=== PATIENT | female | born 1940 | race Caucasian/White ===

== ENCOUNTER 2020-09-09 17:05 | Outpatient (NON) | payer MEDICARE, SELFPAY ==
[2020-09-09 17:32] LABS: Alanine Aminotransferase 16 U/L (14-59); Albumin Level 3.9 g/dL (3.4-5.0); Alkaline Phosphatase 71 U/L (46-116); Anion Gap 4 mmol/L (8-16); Aspartate Amino Transferase 16 U/L (15-37); Bilirubin,Total 0.5 mg/dL (0.00-1.00); Blood Urea Nitrogen 16 mg/dL (7-18); Calcium 9.3 mg/dL (8.5-10.1); Carbon Dioxide 33 mmol/L (21-32); Chloride 101 mmol/L (98-108); Estimated Glomerular Filt Rate 39; Glucose 103 mg/dL (70-99); Osmolality Calculated 287 mOsm/kg (285-295); Potassium 3.6 mmol/L (3.5-5.1); Sodium 138 mmol/L (136-145); Total Protein 6.6 g/dL (6.4-8.2)
== END 2020-09-09 17:06 ==
LOC: CHSLAB 17:09
PROVIDERS: PCP Family Medicine; Visit Provider Family Medicine
DX: J44.9 Chronic obstructive pulmonary disease, unspecified (principal); I10 Essential (primary) hypertension
CPT/HCPCS: 36415; 80053

== ENCOUNTER 2021-12-27 16:48 | Inpatient (IN) | payer MEDICARE, SELFPAY ==
--- NOTE | ~2021-12-27 | XR_ITS ---
EXAMINATION: XR chest 1V portable DATE: 01/04/2022 09:17 INDICATION: Mental status change. TECHNIQUE: A single frontal view of the chest was obtained. COMPARISON: Chest single view 01/02/2022 FINDINGS: There is a diffuse interstitial pattern, consistent with mild pulmonary edema. There is a s mall right pleural effusion. No pneumothorax. Cardiomegaly is noted. IMPRESSION: 1. Mild pulmonary edema. 2. Small right pleural effusion. 3. Cardiomegaly. Reviewed, dictated and finalized at location B.
--- NOTE | ~2021-12-27 | XR_ITS ---
EXAMINATION: XR chest 1V portable DATE: 01/02/2022 06:45 INDICATION: COPD. Congestive heart failure. TECHNIQUE: frontal view of the chest was obtained. COMPARISON: None FINDINGS: Opacities at the bilateral lung bases with blunting at the costophrenic angles consistent with small bilateral pleural effusions and associated basilar atelectasis, mild pulmonary edema or pneumonia. No pneumothorax. Borderline heart size accounting for AP technique. IMPRESSION: 1. Small bilateral pleural effusions with associated bibasilar atelectasis, mild pulmonary edema or p neumonia. 2. Borderline heart size. Reviewed, dictated and finalized at location A. IMPRESSION: 1. Small bilateral pleural effusions with associated bibasilar atelectasis, mil d pulmonary edema or pneumonia. 2. Borderline heart size.
--- NOTE | ~2021-12-27 | CT_ITS ---
EXAMINATION: CT brain wo con DATE: 01/04/2022 09:17 INDICATION: Headache. Change in mental status. TECHNIQUE: Computed tomography (CT) of the head was performed without intravenous contrast. The mA wa s adjusted according to patient size. Iterative reconstruction technique was employed. The dose-lengt h product was 605.33 mGy-cm. COMPARISON: None FINDINGS: There is a right-sided frontotemporal subdural hematoma that is predominantly hypodense and isodense to issa matter with maximum thickness of 18 mm. Inferior to right temporal lobe, there is a n area of the subdural hematoma that is hyperdense to issa matter. There is 17 mm leftward midline sh ift measured at the foramen of Monro. Right-sided uncal herniation is noted. There is no acute ischem ic infarct. There is no abnormal mass lesion. There is enlargement of temporal horn of left lateral v entricle, consistent with entrapment. There is decreased attenuation in the left temporal lobe perive ntricular white matter, which may be transependymal flow of cerebral spinal fluid and/or chronic smal l vessel ischemic disease. There is mild mucosal thickening in the paranasal sinuses. The mastoid air cells are normal. IMPRESSION: 1. Large right-sided subdural hematoma, likely acute and subacute. 2. Leftward subfalcine herniation and right-sided uncal herniation. 3. Entrapment of left lateral ventricle. 4. I discussed this case with Shamar Rebolledo. Reviewed, dictated and finalized at location B.
[2021-12-27 17:35] VITALS: BMI 25.9
--- NOTE | 2021-12-27 18:09 | ADMGEN ---
Addendum entered by Iveth Castle RN 12/27/21 18:13: *discharge date of 12/27/21. Reporting nurse also stated that patient is to have a CT of head without contrast before 01/18/22. Patient is alert and oriented x4 but does exhibit sundowners at times. She is currently taking seroquel and has orders to taper off begininning 12/27/21 take 25mg QHS x3 then 12.5mg QHS x3. Original Note: This patient, Inge Bowers, was admitted to 2nd Floor Room 208-2. Patient/family oriented to hospital policies and general routines including ID bracelet, bed and alarms, visiting hours, pain management, procedures, bathroom and other care routines, personal items, smoking policy, room service/diet, and visiting hours. Information on how to activate the Rapid Response Team has been discussed. Patient/Family are encouraged to report perceived risks to care and to ask questions if they do not understand what they are told or what they should do. Son, Yonatan is POA. Daughters Janna and Isabel are at bedside. Daughter Janna took patient belongings home and left slippers, pajama pants and socks. Daughter will bring up clothes tomorrow for patient to wear. Per report from hospital that patient was discharged from, patient is supposed to hold coumadin for 1 month from discharge date (00
[2021-12-27 20:00] VITALS: PULSE 80; RESP 18; O2SAT 95; O2SAT 96
--- NOTE | 2021-12-27 20:00 | PC.NURSE ---
Patient does not have an IV. Therefore, an IV could not be assessed.
[2021-12-27 21:10] VITALS: PULSE 87
[2021-12-27] MEDS: METOPROLOL TARTRATE 25 MG TABLET PO (21:10)
[2021-12-27] MEDS: PRAMIPEXOLE 0.125 MG TABLET PO (21:11)
[2021-12-27] MEDS: MELATONIN 5 MG TABLET PO (21:11)
[2021-12-27] MEDS: QUEtiapine FUMARATE 25 MG TABLET PO (21:11)
--- NOTE | 2021-12-27 21:20 | PC.NURSE ---
Patient was ordered to take 0.125 mg Pramipexole @ 2100. This medication was not available in the [facility], and pharmacy had left for the night. The charge nurse and I went in the pharmacy, and took out 0.25 mg Pramipexole for the patient, and the medication was cut in half, so that 0.5 of the 0.25 tablet was dispensed to the patient. That allowed the patient to be given the correct dosage of her medication (0.125 mg Pramipexole).
[2021-12-28] VITALS (9 sets, daily range): BP systolic 132–182; BP diastolic 71–95; PULSE 74–97; RESP 16–22; TEMP 36.2–36.8; O2SAT 90–97
[2021-12-28 05:09] LABS: Hematocrit 36.5 % (35.0-42.0); Hemoglobin 11.3 g/dL (11.7-13.8); Mean Corpuscular Hemoglobin 29.7 pg (27.0-31.0); Mean Corpuscular Volume 96.1 fL (78.0-102.0); Mean Platelet Volume 9.7 fl (9.2-11.8); Platelet Count Result 213 K/mm3 (150-420); Red Cell Distribution Width 14.5 % (11.6-14.4); White Blood Count 5.3 K/mm3 (4.8-10.8)
[2021-12-28 05:26] LABS: Alanine Aminotransferase 24 U/L (14-59); Albumin Level 2.8 g/dL (3.4-5.0); Alkaline Phosphatase 81 U/L (46-116); Anion Gap 7 mmol/L (8-16); Aspartate Amino Transferase 26 U/L (15-37); Bilirubin,Total 0.9 mg/dL (0.00-1.00); Blood Urea Nitrogen 11 mg/dL (7-18); Calcium 8.7 mg/dL (8.5-10.1); Carbon Dioxide 29 mmol/L (21-32); Chloride 102 mmol/L (98-108); Estimated CRCL calculation 46 ml/min; Estimated Glomerular Filt Rate > 60; Glucose 101 mg/dL (70-99); Magnesium 1.9 mg/dL (1.8-2.4); Osmolality Calculated 285 mOsm/kg (285-295); Potassium 3.8 mmol/L (3.5-5.1); Sodium 138 mmol/L (136-145); Total Protein 5.7 g/dL (6.4-8.2)
[2021-12-28] MEDS: METOPROLOL TARTRATE 25 MG TABLET PO ×2 (07:33→20:53)
[2021-12-28] MEDS: DIGOXIN TAB 125 MCG TABLET PO (07:33)
[2021-12-28] MEDS: DOCUSATE SODIUM 100 MG CAPSULE PO ×2 (07:34→16:43)
--- NOTE | 2021-12-28 07:53 | PM.IMHP ---
H&P: HPI History of Present Illness Date/Time: 12/28/21 07:53 this is a 81-year-old female that comes to a swing bed as she was admitted to the hospital in [place] from a post traumatic fall found she had a subdural hematoma with a 7 mm midline shift. Patient has a past medical history of atrophia, COPD, hypertension, CHF. Patient did not require any surgical intervention patient was noted to have some sundowning at nighttime during her stay patient had headaches throughout the visit nothing was found neuro was consulted recommendation was Tylenol while there the subdural hematoma continued to increase as she improved patient fell while at the hospital. Recommendations were to make sure that we avoid steroids in the setting of traumatic brain injury as well as keep her head of the bed 30 degrees we will be holding Coumadin for 1 month neurosurgery will continue to follow as an outpatient. Patient also has some forgetfulness noted as she informs me she cannot remember what she has just informed me. After review of our labs they are unremarkable. She will be seen by physical therapy and occupational therapy and treated and evaluated accordingly Chief Complaint: decondition, REhab Review of Systems Review of Systems: Headache All systems reviewed & are unremarkable except as noted in HPI and below PMFSH Past Medical History Medical History Afib CHF (congestive heart failure) COPD (chronic obstructive pulmonary disease) Fall HTN (hypertension) SDH (subdural hematoma) Surgical History Surgical History Hx of cholecystectomy Total knee replacement status Social History Social History Smoking packs per day: 3 Smoking cigarettes per day: 60.0 Years smoked: 40 Smoking pack-years: 120.00 Smoking status: Former smoker Tobacco type: cigarettes Second hand tobacco smoke exposure: No Alcohol intake: never Substance use: never Substance use type: does not use Spiritual care concerns: No Comments At time as signature, I have reviewed and agree with nursing past medical, social, surgical and family history. Please see nursing chart for further information. There is no relevant family history pertinent to the presenting complaint. Meds Home Medications and Allergies Home Medications Medication Instructions Recorded Confirmed Type Zofran 4 mg PO TID PRN 12/27/21 12/27/21 History acetaminophen 650 mg PO Q4-6H PRN 12/27/21 12/27/21 History budesonide-formoterol [Symbicort] 2 puff INHALATION BID 12/27/21 12/27/21 History digoxin 125 mcg PO DAILY 12/27/21 12/27/21 History docusate sodium 100 mg PO BID 12/27/21 12/27/21 History metoprolol tartrate 25 mg PO BID 12/27/21 12/27/21 History pramipexole 0.125 mg PO HS 12/27/21 12/27/21 History quetiapine 25 mg PO HS 12/27/21 12/27/21 History umeclidinium [Incruse Ellipta] 62.5 mcg INHALATION DAILY 12/27/21 12/27/21 History Allergies Allergy/AdvReac Type Severity Reaction Status Date / Time No Known Allergies Allergy Verified 12/27/21 18:26 Vital Signs Vital Signs - 24 hr 12/27/21 20:00 12/27/21 21:10 12/28/21 00:00 Temperature 97.3 F L Pulse Rate 80 87 74 Respiratory Rate 18 18 Blood Pressure 163/82 H Pulse Oximetry 95 95 12/28/21 06:33 12/28/21 07:33 12/28/21 07:38 Temperature 97.2 F L Pulse Rate 84 96 96 Respiratory Rate 18 22 H Blood Pressure 182/95 H Pulse Oximetry 94 91 Exam Narrative: GENERAL:Well-appearing, well-nourished, and in no acute distress. HEAD:Normocephalic, atraumatic. EYES: PERRLA and EOMI. ENT: Nares clear, no rhinorrhea or epistaxis. Mucous membranes moist. NECK: Supple. CHEST: Clear to auscultation. No respiratory distress. HEART: Regular rate and rhythm. No murmur heard. Normal peripheral pulses. ABDOMEN: Soft, nontender, nondistended,
[2021-12-28] MEDS: ACETAMINOPHEN 325 MG TABLET 650 MG PO (08:12)
[2021-12-28] MEDS: UMECLIDINIUM BROMIDE 62.5 MCG ELLIPTA 1 PUFF INHALATION (09:11)
[2021-12-28] MEDS: BUDESONIDE/FORMOTEROL (*SP) 160-4.5 MCG 6 GM INH 2 PUFF INHALATION ×2 (09:11→16:44)
[2021-12-28] MEDS: traMADol HCL (*CRX) 50 MG TABLET PO ×2 (10:55→16:43)
--- NOTE | 2021-12-28 13:54 | PC.NURSE ---
Pt. remained A&Ox4 today. Pt. HOB to remain at 30 degrees or higher at all times. Increase oxygen with any type of activity to maintain SPO2 at 90% or higher. Pt. c/o headache to frontal lobe this morning. Tylenol did not relieve pain but pain changed location to back of head where patient hit head. Maddi prescribed Tramadol. Patient stated that pain lowered from a 6 to a 4 with the Tramadol. Gave patient ice pack for head. Will monitor if it has any affect on pain. Patient describes pain as sore
[2021-12-28] MEDS: QUEtiapine FUMARATE 25 MG TABLET PO (20:50)
[2021-12-28] MEDS: PRAMIPEXOLE 0.125 MG TABLET PO (20:50)
[2021-12-28] MEDS: MELATONIN 5 MG TABLET PO (20:51)
[2021-12-29] VITALS (7 sets, daily range): BP systolic 119–169; BP diastolic 69–92; PULSE 69–96; RESP 18–20; TEMP 36.5–36.8; O2SAT 90–96
[2021-12-29] MEDS: BUDESONIDE/FORMOTEROL (*SP) 160-4.5 MCG 6 GM INH 2 PUFF INHALATION ×2 (08:51→16:48)
[2021-12-29] MEDS: UMECLIDINIUM BROMIDE 62.5 MCG ELLIPTA 1 PUFF INHALATION (08:51)
[2021-12-29] MEDS: METOPROLOL TARTRATE 25 MG TABLET PO ×2 (08:51→20:41)
[2021-12-29] MEDS: DIGOXIN TAB 125 MCG TABLET PO (08:52)
[2021-12-29] MEDS: traMADol HCL (*CRX) 50 MG TABLET PO ×2 (08:52→16:47)
[2021-12-29] MEDS: DOCUSATE SODIUM 100 MG CAPSULE PO ×2 (08:52→16:48)
[2021-12-29] MEDS: QUEtiapine FUMARATE 25 MG TABLET PO (20:36)
[2021-12-29] MEDS: PRAMIPEXOLE 0.125 MG TABLET PO (20:40)
[2021-12-29] MEDS: MELATONIN 5 MG TABLET PO (20:41)
[2021-12-29] MEDS: ACETAMINOPHEN 325 MG TABLET 650 MG PO (20:43)
[2021-12-30] VITALS (7 sets, daily range): BP systolic 139–160; BP diastolic 78–100; PULSE 80–88; RESP 18; TEMP 36.2–36.7; O2SAT 92–95
[2021-12-30] MEDS: DOCUSATE SODIUM 100 MG CAPSULE PO ×2 (08:33→17:38)
[2021-12-30] MEDS: traMADol HCL (*CRX) 50 MG TABLET PO ×3 (08:34→21:05)
[2021-12-30] MEDS: METOPROLOL TARTRATE 25 MG TABLET PO ×2 (08:34→21:05)
[2021-12-30] MEDS: DIGOXIN TAB 125 MCG TABLET PO (08:34)
[2021-12-30] MEDS: BUDESONIDE/FORMOTEROL (*SP) 160-4.5 MCG 6 GM INH 2 PUFF INHALATION ×2 (08:40→17:38)
[2021-12-30] MEDS: UMECLIDINIUM BROMIDE 62.5 MCG ELLIPTA 1 PUFF INHALATION (08:41)
[2021-12-30] MEDS: ACETAMINOPHEN 325 MG TABLET 650 MG PO ×2 (11:45→19:15)
[2021-12-30] MEDS: QUEtiapine FUMARATE 12.5 MG TABLET PO (21:04)
[2021-12-30] MEDS: PRAMIPEXOLE 0.125 MG TABLET PO (21:04)
[2021-12-30] MEDS: MELATONIN 5 MG TABLET PO (21:06)
--- NOTE | 2021-12-30 22:41 | PC.NURSE ---
Patient sleeping. No apparent distress. Call light and needed items within reach.
[2021-12-31] VITALS (8 sets, daily range): BP systolic 128–167; BP diastolic 63–87; PULSE 60–96; RESP 18–20; TEMP 35.7–36.9; O2SAT 92–95
[2021-12-31] MEDS: ACETAMINOPHEN 325 MG TABLET 650 MG PO ×2 (01:15→11:48)
--- NOTE | 2021-12-31 05:50 | PC.NURSE ---
Patient attempted to ambulate to bed by self. Nurse found patient, reminded to ask for assistance. O2 @4L per n.c while ambulating and immediately after ambulating. HOB up 40 degrees, Feet elevated on one pillow. Bed alarm on.Patient denies headache or need for pain medication.
[2021-12-31] MEDS: UMECLIDINIUM BROMIDE 62.5 MCG ELLIPTA 1 PUFF INHALATION (08:13)
[2021-12-31] MEDS: DIGOXIN TAB 125 MCG TABLET PO (08:14)
[2021-12-31] MEDS: BUDESONIDE/FORMOTEROL (*SP) 160-4.5 MCG 6 GM INH 2 PUFF INHALATION ×2 (08:14→17:10)
[2021-12-31] MEDS: DOCUSATE SODIUM 100 MG CAPSULE PO ×2 (08:15→17:12)
[2021-12-31] MEDS: METOPROLOL TARTRATE 25 MG TABLET PO ×2 (08:15→20:57)
[2021-12-31] MEDS: traMADol HCL (*CRX) 50 MG TABLET PO ×2 (08:43→17:12)
[2021-12-31] MEDS: MELATONIN 5 MG TABLET PO (20:56)
[2021-12-31] MEDS: QUEtiapine FUMARATE 12.5 MG TABLET PO (20:57)
[2021-12-31] MEDS: PRAMIPEXOLE 0.125 MG TABLET PO (20:57)
[2022-01-01] VITALS (8 sets, daily range): BP systolic 128–158; BP diastolic 67–86; PULSE 62–78; RESP 16–18; TEMP 36.1–36.4; O2SAT 93–95
[2022-01-01] MEDS: BUDESONIDE/FORMOTEROL (*SP) 160-4.5 MCG 6 GM INH 2 PUFF INHALATION ×2 (08:15→17:04)
[2022-01-01] MEDS: DOCUSATE SODIUM 100 MG CAPSULE PO ×2 (08:16→17:03)
[2022-01-01] MEDS: UMECLIDINIUM BROMIDE 62.5 MCG ELLIPTA 1 PUFF INHALATION (08:16)
[2022-01-01] MEDS: METOPROLOL TARTRATE 25 MG TABLET PO ×2 (08:16→21:01)
[2022-01-01] MEDS: DIGOXIN TAB 125 MCG TABLET PO (08:17)
[2022-01-01] MEDS: traMADol HCL (*CRX) 50 MG TABLET PO ×2 (08:17→17:03)
[2022-01-01] MEDS: ACETAMINOPHEN 325 MG TABLET 650 MG PO (13:20)
--- NOTE | 2022-01-01 13:22 | PC.NURSE ---
Call placed to Maddi HERNANDEZ and report given on pts change in condition. Pt has increased noted bilat lower edema swelling and feet noted to be cyanotic, pt placed back to bed and feet elevated. Pt also c/o some increased SOB today and increased pressure in her head that is different from this AM. Awaiting new orders.
--- NOTE | 2022-01-01 13:44 | PC.NURSE ---
Addendum entered by Ashlyn Connell RN 01/01/22 13:47: Also added to orders for incentive spirometry, RT notified for teaching. Original Note: Orders received for TOM Mcnair applied, continue to monitor, and labs/CXR in AM.
--- NOTE | 2022-01-01 16:47 | PC.NURSE ---
Patient exhibiting increased confusion per normal this time of day. Patient noted to be removing her O2 x 2 this afternoon. Cyanosis noted to bilateral feet and coarse crackles with diminished lung sounds noted in bases. NITRATOR OPERATOR notified of change in condition and ordered TOM hose and spirometry for patient. Patient currently resting in bed with legs elevated and ice pack for her headache.
[2022-01-01] MEDS: MELATONIN 5 MG TABLET PO (21:00)
[2022-01-01] MEDS: PRAMIPEXOLE 0.125 MG TABLET PO (21:02)
[2022-01-01] MEDS: QUEtiapine FUMARATE 12.5 MG TABLET PO (21:02)
[2022-01-02] VITALS (8 sets, daily range): BP systolic 127–147; BP diastolic 72–87; PULSE 63–78; RESP 18–20; TEMP 36.4–37.1; O2SAT 92–98
[2022-01-02] MEDS: ACETAMINOPHEN 325 MG TABLET 650 MG PO (03:08)
[2022-01-02 05:14] LABS: Hematocrit 33.2 % (35.0-42.0); Hemoglobin 10.5 g/dL (11.7-13.8); Mean Corpuscular HGB Conc 31.6 g/dL (32.0-36.0); Mean Corpuscular Volume 94.9 fL (78.0-102.0); Mean Platelet Volume 10.1 fl (9.2-11.8); Platelet Count Result 201 K/mm3 (150-420); Red Cell Distribution Width 14.8 % (11.6-14.4); White Blood Count 5.3 K/mm3 (4.8-10.8)
[2022-01-02 05:35] LABS: Anion Gap 3 mmol/L (8-16); Blood Urea Nitrogen 8 mg/dL (7-18); Calcium 8.9 mg/dL (8.5-10.1); Carbon Dioxide 31 mmol/L (21-32); Chloride 99 mmol/L (98-108); Estimated CRCL calculation 49 ml/min; Estimated Glomerular Filt Rate > 60; Glucose 92 mg/dL (70-99); NT Pro B Type Natriuretic Pept 2547 pg/mL (0-450); Osmolality Calculated 274 mOsm/kg (285-295); Potassium 4.3 mmol/L (3.5-5.1); Sodium 133 mmol/L (136-145)
[2022-01-02] MEDS: UMECLIDINIUM BROMIDE 62.5 MCG ELLIPTA 1 PUFF INHALATION (08:48)
[2022-01-02] MEDS: BUDESONIDE/FORMOTEROL (*SP) 160-4.5 MCG 6 GM INH 2 PUFF INHALATION ×2 (08:48→17:34)
[2022-01-02] MEDS: METOPROLOL TARTRATE 25 MG TABLET PO ×2 (08:48→20:13)
[2022-01-02] MEDS: DOCUSATE SODIUM 100 MG CAPSULE PO ×2 (08:49→17:34)
[2022-01-02] MEDS: traMADol HCL (*CRX) 50 MG TABLET PO ×2 (08:49→18:00)
[2022-01-02] MEDS: DIGOXIN TAB 125 MCG TABLET PO (08:49)
[2022-01-02] MEDS: FUROSEMIDE 40 MG TABLET PO (08:49)
--- NOTE | 2022-01-02 10:26 | PM.EVENT ---
Event Note Event Note Event Note: Patient was given a 1x dose of lasix as BNP 2547 everything else is stable and patient is feeling ok today we will continue to monitor .
[2022-01-02] MEDS: PRAMIPEXOLE 0.125 MG TABLET PO (20:14)
[2022-01-02] MEDS: QUEtiapine FUMARATE 12.5 MG TABLET PO (20:14)
[2022-01-02] MEDS: MELATONIN 5 MG TABLET PO (20:14)
[2022-01-03] VITALS (9 sets, daily range): BP systolic 147–178; BP diastolic 82–90; PULSE 54–77; RESP 16–18; TEMP 36.3–37; O2SAT 93–97
[2022-01-03] MEDS: UMECLIDINIUM BROMIDE 62.5 MCG ELLIPTA 1 PUFF INHALATION (08:34)
[2022-01-03] MEDS: BUDESONIDE/FORMOTEROL (*SP) 160-4.5 MCG 6 GM INH 2 PUFF INHALATION ×2 (08:34→17:27)
[2022-01-03] MEDS: DIGOXIN TAB 125 MCG TABLET PO (08:35)
[2022-01-03] MEDS: METOPROLOL TARTRATE 25 MG TABLET PO ×2 (08:35→21:01)
[2022-01-03] MEDS: DOCUSATE SODIUM 100 MG CAPSULE PO ×2 (08:35→17:28)
[2022-01-03] MEDS: traMADol HCL (*CRX) 50 MG TABLET PO ×2 (08:38→21:01)
[2022-01-03] MEDS: ACETAMINOPHEN 325 MG TABLET 650 MG PO (13:21)
[2022-01-03] MEDS: ONDANSETRON HCL ODT 4 MG TABLET PO (13:22)
[2022-01-03] MEDS: PRAMIPEXOLE 0.125 MG TABLET PO (21:01)
[2022-01-03] MEDS: QUEtiapine FUMARATE 12.5 MG TABLET PO (21:01)
--- NOTE | 2022-01-03 21:13 | PC.NURSE ---
Patient awakened easily when name spoken. Patient to/from bedside commode per 2 nurses with walker and gait belt. Patient appeared fatigued and said she was very tired. Patient urinated. Patient was very drowsy and was closing her eyes soon as she was back in the bed. Patient took HS meds without difficulty. Patient refused Melatonin @ this time due to already being so tired. O2 @ 2 lpm/nc. No short of breath noted. Respirations even and unlabored. Call light in reach.
--- NOTE | 2022-01-03 23:57 | PC.NURSE ---
Patient awaked to name spoken but remains very drowsy. Denies pain/complaints/needs @ this time. O2 continues @ 2 lpm/nc. Respirations even and unlabored. Call light in reach.
--- NOTE | 2022-01-04 01:45 | PC.NURSE ---
Patient assisted to/from bedside commode per 2 nurses with gait belt and walker. Patient admitted to feeling weak. Urinated 100ml dark yellow urine. No shortness of breath noted. Call light in reach.
--- NOTE | 2022-01-04 04:00 | PC.NURSE ---
Patient drowsy but awakens by name. Patient has been assisted with turning/positioning throughout the night. O2 continues @ 2 lpm/nc. Respirations even and unlabored. No distress noted. Call light in reach.
--- NOTE | 2022-01-04 04:45 | PC.NURSE ---
Patient awake when nurse entered room, not as drowsy when talking to verse writer. Patient denies pain/complaints/needs @ this time. Patient assisted onto her left side with pillow behind her back for comfort. O2 continues @ 2 lpm/nc with respirations even and unlabored. Patient drank some water with verse writer holding cup. No distress noted. Call light in reach.
--- NOTE | 2022-01-04 06:20 | PC.NURSE ---
Upon checking on patient resume writer noted that patient has turned herself onto her right side and is holding the pillow that was previously behind her back. O2 continues and respirations remain even and unlabored. No distress noted. Call light in reach.
[2022-01-04 08:00] VITALS: BP 164/79; PULSE 63; RESP 16; TEMP 36.2; O2SAT 94
--- NOTE | 2022-01-04 08:17 | PC.NURSE ---
MARY Rebolledo contacted regarding change of condition, more sleepy, not wanting to wake up this am.
[2022-01-04 09:08] LABS: Basophils Absolute Auto 0.04 K/mm3 (0.00-0.10); Basophils Percent Auto 0.5 % (0.0-1.0); Eosinophils Absolute Auto 0.07 K/mm3 (0.02-0.50); Hematocrit 36.7 % (35.0-42.0); Hemoglobin 11.6 g/dL (11.7-13.8); Immature Granulocyte Absolute 0.03 K/mm3 (0.00-0.00); Immature Granulocyte Percent A 0.4 % (0.0-0.0); Lymphocytes Absolute Auto 0.52 K/mm3 (1.10-4.50); Lymphocytes Percent Auto 7.1 % (18.0-42.0); Mean Corpuscular HGB Conc 31.6 g/dL (32.0-36.0); Mean Corpuscular Hemoglobin 29.7 pg (27.0-31.0); Mean Corpuscular Volume 94.1 fL (78.0-102.0); Mean Platelet Volume 9.8 fl (9.2-11.8); Monocytes Absolute Auto 0.44 K/mm3 (0.10-0.90); Neutrophils Absolute Auto 6.3 K/mm3 (1.7-7.2); Platelet Count Result 257 K/mm3 (150-420); Red Cell Distribution Width 14.5 % (11.6-14.4); White Blood Count 7.4 K/mm3 (4.8-10.8)
[2022-01-04 09:27] LABS: Lactic Acid Reflex 0.8 mmol/L (0.4-2.0)
[2022-01-04 09:28] LABS: Alanine Aminotransferase 16 U/L (14-59); Alkaline Phosphatase 87 U/L (46-116); Anion Gap 6 mmol/L (8-16); Aspartate Amino Transferase 17 U/L (15-37); Bilirubin,Total 1.5 mg/dL (0.00-1.00); Blood Urea Nitrogen 9 mg/dL (7-18); Carbon Dioxide 30 mmol/L (21-32); Chloride 94 mmol/L (98-108); Estimated CRCL calculation 48 ml/min; Estimated Glomerular Filt Rate > 60; Glucose 89 mg/dL (70-99); Osmolality Calculated 267 mOsm/kg (285-295); Potassium 4.4 mmol/L (3.5-5.1); Sodium 130 mmol/L (136-145); Total Protein 5.9 g/dL (6.4-8.2); Troponin I 38.6 ng/L (0.00-60.4)
[2022-01-04 09:32] LABS: Ammonia < 10 umol/L (11-32)
[2022-01-04 09:40] VITALS: PULSE 63
--- NOTE | 2022-01-04 09:45 | PM.TDS ---
Transfer Discharge Sum: Prov Provider Date of admission: 12/27/21 16:48 Primary care physician: Dragan Roth M.D. Admitting clinician: Jerome Anthony MD Consults: 01/03/22 Consult to Home Health Routine Reason for Consult:: Physicial Therary RN/Detention Occupational Therapy DS: Admitting Diagnosis Discharge Date 01/04/2022 Admitting Diagnosis Rehab DS: Discharge Diagnosis Discharge Diagnosis (1) Fall: Qualifiers: Encounter type: subsequent encounter Qualified Code(s): W19.XXXD - Unspecified fall, subsequent encounter Code(s): W19.XXXA - Unspecified fall, initial encounter Status: Acute Assessment and Plan: Fall precautions Call light within reach (2) SDH (subdural hematoma): Code(s): S06.5X9A - Traumatic subdural hemorrhage with loss of consciousness of unspecified duration, initial encounter Status: Acute Assessment and Plan: Avoid steroids in a patient with traumatic brain injury Will hold Coumadin for a month Neuro will follow as an outpatient Head of the bed elevated 30 degrees (3) Afib: Qualifiers: Atrial fibrillation type: unspecified Qualified Code(s): I48.91 - Unspecified atrial fibrillation Code(s): I48.91 - Unspecified atrial fibrillation Status: Acute Assessment and Plan: Hold Coumadin for 1 month Continue oral medication Monitor heart rate Monitor vitals (4) COPD (chronic obstructive pulmonary disease): Qualifiers: COPD type: emphysema Emphysema type: unspecified Qualified Code(s): J43.9 - Emphysema, unspecified Code(s): J44.9 - Chronic obstructive pulmonary disease, unspecified Status: Acute Assessment and Plan: Continue prophylactic medication COPD stable at this time Monitor vitals administer oxygen as needed (5) CHF (congestive heart failure): Qualifiers: Heart failure chronicity: unspecified Heart failure type: unspecified Qualified Code(s): I50.9 - Heart failure, unspecified Code(s): I50.9 - Heart failure, unspecified Status: Acute Assessment and Plan: Weekly weights Monitor for signs and symptoms of CHF Take medication as directed home Oxygen as indicated Transfer Discharge Sum: Med Medications Active and Home Medications: Home Medications Zofran 4 mg PO TID PRN 12/27/21 [History Confirmed 12/27/21] acetaminophen 650 mg PO Q4-6H PRN 12/27/21 [History Confirmed 12/27/21] budesonide-formoterol [Symbicort] 2 puff INHALATION BID 12/27/21 [History Confirmed 12/27/21] digoxin 125 mcg PO DAILY 12/27/21 [History Confirmed 12/27/21] docusate sodium 100 mg PO BID 12/27/21 [History Confirmed 12/27/21] metoprolol tartrate 25 mg PO BID 12/27/21 [History Confirmed 12/27/21] pramipexole 0.125 mg PO HS 12/27/21 [History Confirmed 12/27/21] quetiapine 25 mg PO HS 12/27/21 [History Confirmed 12/27/21] umeclidinium [Incruse Ellipta] 62.5 mcg INHALATION DAILY 12/27/21 [History Confirmed 12/27/21] Active Medications Acetaminophen (Acetaminophen 325 Mg Tablet) 650 mg PO Q6H PRN PRN Reason: Mild Pain (1-3) or Headache Last Admin: 01/03/22 13:21 Dose: 650 mg Documented by: Budesonide/Formoterol Fumarate (Budesonide/Formoterol (*Sp) 160-4.5 Mcg 6 Gm Inh) 2 puff INHALATION BID [facility] Last Admin: 01/04/22 09:39 Dose: Not Given Documented by: Digoxin (Digoxin Tab 125 Mcg Tablet) 125 mcg PO DAILY [facility] Last Admin: 01/04/22 09:40 Dose: Not Given Documented by: Docusate Sodium (Docusate Sodium 100 Mg Capsule) 100 mg PO BID [facility] Stop: 01/27/22 08:59 Last Admin: 01/04/22 09:40 Dose: Not Given Documented by: Hydroxyzine HCl (Hydroxyzine Hcl 12.5 Mg Tablet) 12.5 mg PO Q6H PRN PRN Reason: Itching Melatonin (Melatonin 5 Mg Tablet) 5 mg PO [facility] Last Admin: 01/03/22 21:13 Dose: Not Given Documented by: Metoprolol Tartrate (Metoprolol Tartrate 25 Mg Tablet)
--- NOTE | 2022-01-04 10:33 | PC.NURSE ---
Pt very sleepy this am. Could not keep eyes open or complete comands. Shamar APPLICATION SECURITY SPECIALIST saw pt and ordered labs and CT scan of the head. CT shows brain bleed in progress. Shamar spoke with doctor at [facility] and pt's family. Pt will become a hospice pt with comfort care only.
[2022-01-04 11:21] VITALS: O2SAT 94
--- NOTE | 2022-01-04 13:09 | PCPTNOTE ---
01/03/22 patient not seen in pm per nursing. pt not able to stay awake during the day and was sleeping after not having much sleep the night before.
[2022-01-04 13:52] LABS: SARS-CoV-2 Ag Negative (Negative)
--- NOTE | 2022-01-04 13:52 | PCPTNOTE ---
I talked with nursing. Pt. underwent CT scan this a.m. It revealed further bleeding in the brain. Pt. is not alert enough to participate in treatment. Nursing states that the pt. is going to be transitioned to hospice care. She will be discharged from our care at this time. Refer to her last daily note for pt. discharge status
--- NOTE | 2022-01-04 15:31 | PC.NURSE ---
report called to [facility], Lexis SONG took report, pt will go by ambulance, landon in place and to gravity, urine is dark yellow and strong smelling, pt responds to shaking but only with slight adjustment in position, eyes closed and breathing normal, 02 is on
--- NOTE | 2022-01-04 15:43 | PC.NURSE ---
[facility] called for pt transfer, dispatch will page out
[2022-01-04 16:00] VITALS: O2SAT 94
--- NOTE | 2022-01-05 14:59 | PC.NURSE ---
residential nurse states they received and understood the discharge instructions.
== END 2022-01-04 16:05 | DRG 949 ==
PROVIDERS: Nurse Practitioner Family; Admitting Provider Internal Medicine; PCP Family Medicine; Visit Provider Nurse Practitioner
DX: S06.5X9D Traumatic subdural hemorrhage with loss of consciousness of unspecified duration, subsequent encounter (principal); I48.20 Chronic atrial fibrillation, unspecified; S06.A1XD Traumatic brain compression with herniation, subsequent encounter; I11.0 Hypertensive heart disease with heart failure; I50.9 Heart failure, unspecified; J44.9 Chronic obstructive pulmonary disease, unspecified; W19.XXXD Unspecified fall, subsequent encounter; Z96.659 Presence of unspecified artificial knee joint; Z20.822 Contact with and (suspected) exposure to COVID-19; Z87.891 Personal history of nicotine dependence
CPT/HCPCS: 36415; 70450; 71045; 80048; 80053; 82140; 83605; 83735; 83880; 84484; 85025; 85027; 87426; 97110; 97161; 97165; 97530; 97535; A9270; C9803